=== PATIENT | male | born 1935 | race Caucasian/White ===

== ENCOUNTER 2016-09-26 20:01 | Emergency (ER) | payer OTHER ==
[2016-09-27] MEDS ORDERED: ONDANSETRON 4 MG VIAL ONE (01:17)
[2016-09-27] MEDS ORDERED: SODIUM CHLORIDE 0.9% 1,000 ML ONE (01:18)
[2016-09-27] MEDS ORDERED: METHYLPRED SOD SUCC 125 MG/2 ML VIAL ONE (01:18)
[2016-09-27] MEDS ORDERED: DILAUDID 1 MG/ML AMP ONE (01:18)
== END 2016-09-27 04:53 | disposition home or self-care (01) ==
LOC: ER 20:01
DX: M25.572 Pain in left ankle and joints of left foot (principal); M25.571 Pain in right ankle and joints of right foot; M25.522 Pain in left elbow; M10.072 Idiopathic gout, left ankle and foot; M10.071 Idiopathic gout, right ankle and foot; M10.022 Idiopathic gout, left elbow; M13.0 Polyarthritis, unspecified; I12.9 Hypertensive chronic kidney disease with stage 1 through stage 4 chronic kidney disease, or unspecified chronic kidney disease; N18.9 Chronic kidney disease, unspecified
CPT/HCPCS: 36415; 80053; 81001; 85025; 87088; 96361; 96374; 96375; 99285; J1170; J2405; J2930